=== PATIENT | female | born 1950 ===

== ENCOUNTER 2018-02-16 10:57 | Day surgery (SDC) | payer OTHER ==
[~2018-02-16] VITALS: Ht 157.5 cm; Wt 79.4 kg
[2018-02-16 11:11] VITALS: BP 130/61
[2018-02-16 16:08] VITALS: BP 115/71
[2018-02-16 16:10] VITALS: BP 115/71
[2018-02-16] MEDS ORDERED: METFORMIN HYDR500 M1 PO (16:29)
[2018-02-16] MEDS ORDERED: LOSARTAN POTAS100 M1 PO (16:29)
[2018-02-16] MEDS ORDERED: LIPITOR40 MG PO (16:29)
[2018-02-16] MEDS ORDERED: CELEBREX200 MG PO (16:30)
[2018-02-16 20:36] VITALS: BP 119/57
[2018-02-17 06:36] VITALS: BP 114/55
[2018-02-17 10:00] VITALS: BP 110/47
[2018-02-17] MEDS ORDERED: MOT600 PO (13:01)
[2018-02-17] MEDS ORDERED: KEFLEX500 M1 PO (13:02)
[2018-02-17 13:06] VITALS: BP 114/55
== END 2018-02-17 14:10 | disposition home or self-care (01) ==
LOC: DS 10:57 → MU 10:57 → DS 12:00 → OR 12:30 → MU 14:27 → DS 02-17 14:10
PROVIDERS: Neuromusculoskeletal Medicine, Sports Medicine
PROC: 0RNJ0ZZ Release Right Shoulder Joint, Open Approach (ICD-10-PCS; 2018-02-16)
PROC: 0LQ10ZZ Repair Right Shoulder Tendon, Open Approach (ICD-10-PCS; principal; 2018-02-16 12:00)
DX: M75.111 Incomplete rotator cuff tear or rupture of right shoulder, not specified as traumatic (principal); I10 Essential (primary) hypertension; E11.9 Type 2 diabetes mellitus without complications; E78.5 Hyperlipidemia, unspecified; E66.9 Obesity, unspecified; Z68.32 Body mass index [BMI] 32.0-32.9, adult
CPT/HCPCS: 82962; C1713; J0330; J0690; J1170; J2175; J2250; J2405; J2704; J3010; J3490; J7030; J7050